=== PATIENT | female | born 1945 | race Caucasian/White ===

== ENCOUNTER → 2016-03-18 16:46 | Outpatient (CLI) | payer MEDICARE, OTHER | END | disposition home or self-care (01) | LOC: D.MAMMO 15:30 | DX: Z12.31 Encounter for screening mammogram for malignant neoplasm of breast (principal) ==

== ENCOUNTER 2018-02-11 08:00 | Outpatient (CLI) | payer MEDICARE, OTHER | END 2018-02-11 09:00 | disposition home or self-care (01) | LOC: D.MAMMO 08:00 | DX: Z12.31 Encounter for screening mammogram for malignant neoplasm of breast (principal) ==